=== PATIENT | male | born 1965 ===

== ENCOUNTER 2024-05-15 17:39 | Emergency (ER) | payer SELFPAY ==
[~2024-05-15] VITALS: Ht 180.3 cm; Wt 89.8 kg
[2024-05-15 17:58] LABS: BASOPHILS ABSOLUTE AUTO 0.09 K/mm3 (0.00-0.23); BASOPHILS PERCENT AUTO 1 % (0-2); EOSINOPHILS ABSOLUTE AUTO 0.61 K/mm3 (0.00-0.68); EOSINOPHILS PERCENT AUTO 5 % (0-6); Hematocrit 37.7 % (37.0-53.0); Hemoglobin 12.7 g/dL (13.5-17.5); IMMATURE GRAN ABSOLUTE AUTO 0.06 K/mm3 (0.00-0.10); IMMATURE GRAN PERCENT AUTO 1 % (0-1); LYMPHOCYTES ABSOLUTE AUTO 2.25 K/mm3 (0.84-5.20); LYMPHOCYTES PERCENT AUTO 20 % (21-46); MONOCYTES ABSOLUTE AUTO 0.74 K/mm3 (0.16-1.47); MONOCYTES PERCENT AUTO 7 % (4-13); Mean Corpuscular HGB 31.1 pg (26.0-34.0); Mean Corpuscular HGB Conc 33.7 g/dL (31.5-36.5); Mean Corpuscular Volume 92 fL (80-100); Mean Platelet Volume 9.6 fL (9.1-12.4); NEUTROPHILS ABSOLUTE AUTO 7.64 K/mm3 (1.96-9.15); NEUTROPHILS PERCENT AUTO 67 % (41-73); Platelet Count 459 K/mm3 (150-400); RDW Coefficient Variation 13.5 % (11.7-14.2); Red Blood Cell Count 4.08 M/mm3 (4.30-5.90); White Blood Cell Count 11.39 K/mm3 (4.00-11.30)
[2024-05-15 18:23] LABS: Albumin, Blood 3.3 g/dL (3.4-5.0); Albumin/Globulin Ratio 0.9 (0.8-1.8); Bilirubin, Total 0.4 mg/dL (0.1-1.0); Bun/Creatinine Ratio 16.5 (12.0-20.0); Calcium, Blood 9.4 mg/dL (8.5-10.1); Creatinine, Blood 1.27 mg/dL (0.60-1.20); Globulin, Blood 3.6 g/dL (2.2-4.0); Magnesium, Blood 2.2 mg/dL (1.6-2.4); Total Protein, Blood 6.9 g/dL (6.4-8.2)
[2024-05-15 18:34] LABS: Calcium, Ionized (POC) 1.11 mmol/L (1.10-1.46); Chloride (POC) 107 mmol/L (98-108); Creatinine (POC) 1.4 mg/dL (0.8-1.3); Glucose (ISTAT POC) 182 mg/dL (70-99); Hemoglobin (POC) 9.9 g/dL (13.5-17.5); Potassium (POC) 4.6 mmol/L (3.5-5.5); Sodium (POC) 140 mmol/L (135-148); Total CO2 (POC) 21 mmol/L (21-32)
[2024-05-15 18:43] LABS: Prothrombin Time Results 40.7 Sec (9.7-11.5)
[2024-05-15 18:49] LABS: International Normalized Ratio 4.23
[2024-05-15] MEDS ORDERED: NS 1,000 ML IV ONE (18:54)
[2024-05-15] MEDS ORDERED: WATER FOR INJECTION STERILE IV ONE (18:55)
[2024-05-15] MEDS ORDERED: HUMAN PROTHROMBIN COMPLX IV ONE (18:55)
== END 2024-05-15 19:11 | disposition home or self-care (01) ==
LOC: ER 17:39
PROVIDERS: Student in an Organized Health Care Education/Training Program
DX: I31.39 Other pericardial effusion (noninflammatory) (principal); R55 Syncope and collapse; D62 Acute posthemorrhagic anemia; R79.89 Other specified abnormal findings of blood chemistry; Z79.01 Long term (current) use of anticoagulants; Z95.4 Presence of other heart-valve replacement
CPT/HCPCS: 36430; 71045; 80047; 80053; 83690; 83735; 83880; 84484; 85014; 85025; 85610; 85730; 86850; 86900; 86901; 86920; 93005; 93010; 99291-25; J7030; J7060; J7168; P9016

== ENCOUNTER 2024-05-24 05:33 | Inpatient (IN) | payer OTHER, BC ==
[2024-05-24] VITALS (8 sets, daily range): BP systolic 101–130; BP diastolic 80–97
[~2024-05-24] VITALS: Ht 177.8 cm; Wt 92.9 kg
[2024-05-24 06:03] LABS: BASOPHILS ABSOLUTE AUTO 0.04 K/mm3 (0.00-0.23); BASOPHILS PERCENT AUTO 0 % (0-2); EOSINOPHILS ABSOLUTE AUTO 0.08 K/mm3 (0.00-0.68); EOSINOPHILS PERCENT AUTO 1 % (0-6); Hematocrit 30.2 % (37.0-53.0); IMMATURE GRAN PERCENT AUTO 1 % (0-1); LYMPHOCYTES ABSOLUTE AUTO 1.06 K/mm3 (0.84-5.20); LYMPHOCYTES PERCENT AUTO 9 % (21-46); MONOCYTES ABSOLUTE AUTO 1.04 K/mm3 (0.16-1.47); MONOCYTES PERCENT AUTO 9 % (4-13); Mean Corpuscular HGB Conc 33.1 g/dL (31.5-36.5); Mean Corpuscular Volume 94 fL (80-100); NEUTROPHILS PERCENT AUTO 79 % (41-73); Platelet Count 235 K/mm3 (150-400); RDW Coefficient Variation 13.3 % (11.7-14.2); RDW Standard Deviation 45.9 fL (35.1-46.3); Red Blood Cell Count 3.23 M/mm3 (4.30-5.90); White Blood Cell Count 11.22 K/mm3 (4.00-11.30)
[2024-05-24 06:15] LABS: Albumin, Blood 2.8 g/dL (3.4-5.0); Albumin/Globulin Ratio 0.8 (0.8-1.8); Bilirubin, Total 0.6 mg/dL (0.1-1.0); Bun/Creatinine Ratio 13.7 (12.0-20.0); Calcium, Blood 9.2 mg/dL (8.5-10.1); Creatinine, Blood 0.95 mg/dL (0.60-1.20); Globulin, Blood 3.4 g/dL (2.2-4.0); Potassium, Blood 4.1 mmol/L (3.5-5.5); Total Protein, Blood 6.2 g/dL (6.4-8.2)
[2024-05-24] MEDS ORDERED: Morphine Sulfate 4 MG/1 ML Injection IV ONE (06:15)
[2024-05-24] MEDS ORDERED: Ondansetron HCl 2 MG / ML 2ML Vial IV ONE (06:15)
[2024-05-24 06:38] LABS: International Normalized Ratio 2.6; Prothrombin Time Results 25.9 Sec (9.7-11.5)
[2024-05-24] MEDS ORDERED: NS 1,000 ML IV SCH ×2 (06:50→07:15)
[2024-05-24] MEDS ORDERED: FentaNYL Citrate 50 MCG/ML 2 ML Injection IV ONE (07:40)
[2024-05-24] MEDS ORDERED: ENOX100I (07:57)
[2024-05-24] MEDS ORDERED: FURO20 PO (07:58)
[2024-05-24] MEDS ORDERED: POTCHL20ER PO (07:58)
[2024-05-24] MEDS ORDERED: METO25 (07:59)
[2024-05-24] MEDS ORDERED: OXYC5 PO (08:00)
[2024-05-24] MEDS ORDERED: WARF5 PO (08:01)
[2024-05-24] MEDS ORDERED: Aspir 8181 MG PO (08:02)
[2024-05-24] MEDS ORDERED: ATOR40TA PO (08:02)
[2024-05-24] MEDS ORDERED: Amiodarone HCl200 MG PO (08:02)
[2024-05-24] MEDS ORDERED: CLOBETASOL EMOL15 G1 (08:03)
[2024-05-24] MEDS ORDERED: DESONIDE15 G1 TOP (08:03)
[2024-05-24] MEDS ORDERED: HYDCHL25 PO (08:04)
[2024-05-24] MEDS ORDERED: KETO15TC TOP (08:04)
[2024-05-24] MEDS ORDERED: PANT40 PO (08:05)
[2024-05-24] MEDS ORDERED: ACET325 PO (08:06)
[2024-05-24] MEDS ORDERED: COSENTYX P150 MG/1 M SC (08:06)
[2024-05-24] MEDS ORDERED: HYDROmorphone HCl/Pf 1MG SYR IV ONE ×2 (09:20→13:00)
[2024-05-24] MEDS ORDERED: FLU VACC TS2024-25(6MOS UP)/PF 45 MCG/0.5 ML SYRINGE IM SCH (11:30)
[2024-05-24] MEDS ORDERED: Bisacodyl 10 MG Supp PR PRN (11:30)
[2024-05-24] MEDS ORDERED: Magnesium Hydroxide Conc 10 ML UDC PO PRN (11:30)
[2024-05-24] MEDS ORDERED: Lactated Ringer's 1,000 ML IV SCH (11:35)
[2024-05-24] MEDS ORDERED: HYDROmorphone HCl/Pf 1MG SYR IV PRN (11:35)
[2024-05-24 11:57] LABS: Hematocrit 31.9 % (37.0-53.0); Hemoglobin 10.4 g/dL (13.5-17.5)
[2024-05-24] MEDS ORDERED: OxyCODONE HCL 5 MG TAB PO PRN (12:13)
[2024-05-24] MEDS ORDERED: Acetaminophen 325 MG TABLET PO ONE (12:40)
[2024-05-24] MEDS ORDERED: Lactated Ringer's 1,000 ML IV ONE (12:41)
[2024-05-24 15:09] LABS: International Normalized Ratio 2.62; Prothrombin Time Results 26.1 Sec (9.7-11.5)
[2024-05-24] MEDS ORDERED: Acetaminophen 325 MG TABLET PO SCH (18:00)
--- NOTE | 2024-05-24 18:44 | NUR ---
PATIENT RECIEVED FOR ED. HE WALKED FROM HALLWAY TO HIS BED. WHILE STANDING BEDSIDE PT REPORTED FEELING NAUSEAED AND HAD 200CC OF CLEAR EMESIS. AFTER EPISODE, PT REPORTED TO FEEL BETTER WITHOUT ANY INTERVENTION. PT ORIENTED TO ROOM AND CALL LIGHT. ALL QUESTIONS ANSWERED AT THIS TIME. VSS, AFEBRILE.
[2024-05-24 20:20] LABS: Hematocrit 32.6 % (37.0-53.0); Hemoglobin 10.6 g/dL (13.5-17.5)
[2024-05-24] MEDS ORDERED: Colchicine 0.6 MG TAB PO ONE (20:25)
[2024-05-24] MEDS ORDERED: Sennosides 8.6 MG Tab PO SCH (21:00)
[2024-05-24] MEDS ORDERED: Atorvastatin 40 MG Tab PO SCH (21:00)
[2024-05-24] MEDS ORDERED: Docusate Sodium 100 MG Cap PO SCH (21:00)
[2024-05-24] MEDS ORDERED: Ondansetron HCl 2 MG / ML 2ML Vial IV PRN (21:10)
[2024-05-24 23:51] LABS: Hematocrit 30.4 % (37.0-53.0)
[2024-05-25] VITALS (21 sets, daily range): BP systolic 100–138; BP diastolic 75–110
[2024-05-25] MEDS ORDERED: Ibuprofen 400 MG Tab PO SCH
--- NOTE | 2024-05-25 00:55 | NUR ---
ASSUMPTION OF CARE ASSUMED CARE FOLLOWING BEDSIDE REPORT FROM DAY NURSE. PT SITTING UP IN BED, ALERT AND ORIENTED TO ALL, MAEW, SERVICE SECRETARY GROSSLY INTACT, SENSATION INTACT IN ALL EXTREMITIES. PAIN 4/10 AT THIS TIME, SHARP, INTERMITTENT RIGHT CHEST, RUQ RADIATING TO BACK AND SHOULDERS. WILL TREAT WITH PRN AND SCHEDULED MEDS. PT IS WORRIED ABOUT NOT GETTING SLEEP TONIGHT- WILL COORDINATE CARE ACCORDINGLY. HR SINUS TACH, BP STABLE SBP > 100. LUNGS CLEAR AND DIMINISHED AT THE BASES, L > R. SAT GOOD ON RA. NO CHEST PRESSURE OR SOB. PT IS PALE. NO AB PAIN. REPORT OF ONE EPISODE OF CLEAR EMESIS UPON ARRIVAL TO ICU. PROVIDER CALLED FOR ANTI-EMETIC IF NEEDED. PT HAS CALL LIGHT NEARBY.
[2024-05-25 03:36] LABS: BASOPHILS ABSOLUTE AUTO 0.01 K/mm3 (0.00-0.23); BASOPHILS PERCENT AUTO 0 % (0-2); EOSINOPHILS PERCENT AUTO 0 % (0-6); Hematocrit 28.9 % (37.0-53.0); Hemoglobin 9.4 g/dL (13.5-17.5); IMMATURE GRAN ABSOLUTE AUTO 0.13 K/mm3 (0.00-0.10); IMMATURE GRAN PERCENT AUTO 1 % (0-1); LYMPHOCYTES ABSOLUTE AUTO 1.16 K/mm3 (0.84-5.20); LYMPHOCYTES PERCENT AUTO 12 % (21-46); MONOCYTES ABSOLUTE AUTO 0.86 K/mm3 (0.16-1.47); MONOCYTES PERCENT AUTO 9 % (4-13); Mean Corpuscular HGB 30.8 pg (26.0-34.0); Mean Corpuscular HGB Conc 32.5 g/dL (31.5-36.5); Mean Corpuscular Volume 95 fL (80-100); Mean Platelet Volume 10.5 fL (9.1-12.4); NEUTROPHILS ABSOLUTE AUTO 7.91 K/mm3 (1.96-9.15); NEUTROPHILS PERCENT AUTO 79 % (41-73); Platelet Count 209 K/mm3 (150-400); RDW Coefficient Variation 14.2 % (11.7-14.2); RDW Standard Deviation 48.5 fL (35.1-46.3); Red Blood Cell Count 3.05 M/mm3 (4.30-5.90); White Blood Cell Count 10.07 K/mm3 (4.00-11.30)
[2024-05-25] MEDS ORDERED: Pantoprazole Sodium 40 MG Tab PO SCH ×2 (06:00→21:00)
[2024-05-25 06:54] LABS: Albumin, Blood 2.9 g/dL (3.4-5.0); Albumin/Globulin Ratio 0.9 (0.8-1.8); Bilirubin, Total 0.6 mg/dL (0.1-1.0); Bun/Creatinine Ratio 21.9 (12.0-20.0); Calcium, Blood 9.8 mg/dL (8.5-10.1); Creatinine, Blood 1.05 mg/dL (0.60-1.20); Globulin, Blood 3.2 g/dL (2.2-4.0); Potassium, Blood 4.9 mmol/L (3.5-5.5); Total Protein, Blood 6.1 g/dL (6.4-8.2)
--- NOTE | 2024-05-25 07:36 | NUR ---
SHIFT SUMMARY PT LYING IN BED AWAKE WHEN SHIFT REPORT DONE INSIDE ROOM. PT ALERT AND ORIENTED TO ALL. MAEW. PT GROSSLY NEUROVASCULARLY INTACT. HR SINUS RHYTHM WITH STBALE BP. NO CHEST PAIN/PRESSURE, SOB, AB PAIN, N/V, DIZZINESS. PT RECEIVED ONE DOSE EACH OF DILAUDID AND OXYCODONE. CENTER CHEST INCISION FROM PERICARDIAL WINDOW PLACEMENT STILL COVERED IN GAUZE WITH NO NEW WEEPING OR LEAKAGE. GOOD SATURATION ON RA WITH AIR MOVEMENT IN ALL LUNG [place]. PT USES URINAL IN BED. SALINE LOCKED. CALL LIGHT NEARBY.
--- NOTE | 2024-05-25 09:00 | NUR ---
AM NOTE: PATIENT ALERT AND ORIENTED X4. ABLE TO MAKE ALL NEEDS KNOWN. DENIES NUMBNESS/TINGLING. UP TO TOILET WITH ONE PERSON ASSIST. MOVING ALL EXTREMITIES. ABLE TO TURN SELF IN BED. TELE SHOWING SINUS RHYTHM/SINUS TACH WITH HR 90-110'S. DENIES CHEST PAIN/PRESSURE/PALPITATIONS. IV SALINE LOCKED. DR. TAVARES BY THIS AM, THIS RN AT BEDSIDE. ORDERS TO DISCONTINUE TYLENOL AND LIPITOR AT THIS TIME. ORDERS IN PLACE. TAVR AND PERICARDIAL WINDOW SURGERY SITES WNL. MIDLINE CHEST DRESSING CHANGED. NO EDEMA NOTED. ON ROOM AIR. LUNG SOUNDS CLEAR AND DIM IN BASES. DENIES SOB AT REST. PATIENT STATES HE FEELS SOB WHEN UP TO TOILET. OCCASIONAL DRY COUGH. EVEN AND UNLABORED RESPIRTATIONS. DENIES ABDOMINAL PAIN/NAUSEA. TOLERTATING PO DIET. USING URINAL TO VOID. BOWEL MOVEMENT X1 THIS AM. BOWEL TONES PRESENT THROUGHOUT ABDOMIN. DR. SANTOS AT BEDSIDE THIS AM, THIS RN PRESENT. ORDERS FOR PCU STATUS, ORDERS IN PLACE. CALL LIGHT IN REACH. PATIENT RESTING IN BED AT THIS TIME. DENIES NEEDS.
[2024-05-25 10:15] LABS: International Normalized Ratio 2.83
[2024-05-25 10:28] LABS: Hematocrit 29.4 % (37.0-53.0); Hemoglobin 9.5 g/dL (13.5-17.5)
--- NOTE | 2024-05-25 15:58 | NUR ---
TRANSFER: REPORT GIVEN BY THIS RN TO MOY RN AND IAN RN. NO ACUTE CHANGES, SEE PREVIOUS AM NOTE. VITAL SIGNS STABLE. PATIENT CONTINUES TO DENY PAIN. REMAINED SR/ST WITH HR 90-100'S. ROOM AIR. UP TO BATHROOM WITH SBA. MULTIPLE BOWEL MOVEMENTS THIS SHIFT. AT BEDSIDE THIS AFTERNOON. PATIENT TAKEN TO PCU 07 WITH ALL PERSONAL BELONGINGS VIA WHEELCHAIR.
[2024-05-25 17:08] LABS: Hematocrit 30.1 % (37.0-53.0)
--- NOTE | 2024-05-25 17:48 | NUR ---
PT ARRIVED TO UNIT AT 1555. REPORT RECEIVED FROM CAMERA ENGINEER. PT TRANSPORTED VIA WHEELCHAIR AND WAS ABLE TO TRANSFER TO PCU BED INDEPENDENTLY. PT ON RA AND SATTING ABOVE 90%. VITAL SIGNS STABLE. CALL LIGHT WITHIN REACH.
[2024-05-25] MEDS ORDERED: Warfarin Sodium 5 MG Tab PO SCH (18:00)
[2024-05-25] MEDS ORDERED: Warfarin Sodium 2.5 MG Tab PO SCH (18:00)
[2024-05-25] MEDS ORDERED: Colchicine 0.6 MG TAB PO SCH (21:00)
[2024-05-25 22:01] LABS: Hematocrit 29.9 % (37.0-53.0); Hemoglobin 9.8 g/dL (13.5-17.5)
[2024-05-26 00:27] VITALS: BP 127/75
[2024-05-26 04:24] LABS: BASOPHILS ABSOLUTE AUTO 0.05 K/mm3 (0.00-0.23); BASOPHILS PERCENT AUTO 1 % (0-2); EOSINOPHILS ABSOLUTE AUTO 0.18 K/mm3 (0.00-0.68); EOSINOPHILS PERCENT AUTO 2 % (0-6); Hemoglobin 9.3 g/dL (13.5-17.5); IMMATURE GRAN ABSOLUTE AUTO 0.09 K/mm3 (0.00-0.10); IMMATURE GRAN PERCENT AUTO 1 % (0-1); LYMPHOCYTES ABSOLUTE AUTO 1.16 K/mm3 (0.84-5.20); LYMPHOCYTES PERCENT AUTO 14 % (21-46); MONOCYTES ABSOLUTE AUTO 0.75 K/mm3 (0.16-1.47); MONOCYTES PERCENT AUTO 9 % (4-13); Mean Corpuscular HGB 30.8 pg (26.0-34.0); Mean Corpuscular HGB Conc 33.2 g/dL (31.5-36.5); Mean Corpuscular Volume 93 fL (80-100); Mean Platelet Volume 10.7 fL (9.1-12.4); NEUTROPHILS ABSOLUTE AUTO 6.29 K/mm3 (1.96-9.15); NEUTROPHILS PERCENT AUTO 74 % (41-73); Platelet Count 204 K/mm3 (150-400); RDW Coefficient Variation 13.9 % (11.7-14.2); Red Blood Cell Count 3.02 M/mm3 (4.30-5.90); White Blood Cell Count 8.52 K/mm3 (4.00-11.30)
[2024-05-26 04:27] VITALS: BP 110/81
[2024-05-26 04:46] LABS: International Normalized Ratio 2.37; Prothrombin Time Results 23.8 Sec (9.7-11.5)
[2024-05-26 05:14] LABS: Albumin, Blood 2.8 g/dL (3.4-5.0); Albumin/Globulin Ratio 0.9 (0.8-1.8); Bilirubin, Total 0.8 mg/dL (0.1-1.0); Bun/Creatinine Ratio 20.5 (12.0-20.0); Calcium, Blood 9.1 mg/dL (8.5-10.1); Creatinine, Blood 0.93 mg/dL (0.60-1.20); Potassium, Blood 3.9 mmol/L (3.5-5.5); Total Protein, Blood 5.8 g/dL (6.4-8.2)
--- NOTE | 2024-05-26 06:37 | NUR ---
SHIFT SUMMARY PT HAD AN OVERALL UNEVENTFUL NIGHT. DENIES PAIN, ON SCHEDULED PAIN MEDICATIONS. SEE MAR FOR DETAILS. HEMODYNAMICALLY STABLE. PT C/O DIARRHEA OVERNIGHT. PT HAS BEEN RECEIVING BOWEL REGIMEN MEDICATIONS, HELD OVERNIGHT. PT IS NOTICING SMALL IMPROVEMENT. H/H STABLE. INR 2.7 PT ON WARFARIN. TRANSAMINITIS NOTED. HEMANGIOMA TO RIGHT HEPATIC LOBE PER IMAGING REPORT.
[2024-05-26 08:32] VITALS: BP 126/83
[2024-05-26] MEDS ORDERED: Colchicine 0.6 MG TAB PO SCH ×2 (09:00→21:00)
[2024-05-26 10:53] LABS: Hematocrit 30.2 % (37.0-53.0)
[2024-05-26 17:00] VITALS: BP 131/80
--- NOTE | 2024-05-26 17:24 | NUR ---
SHIFT SUMMARY NO ACUTE EVENTS THIS SHIFT. PT REMAINED A/OX4, VSS, PT DENIED PAIN. DIARRHEA PERSISTED THROUGH THE DAY, SEE MEDICATION ADJUSTMENTS BY MD.
[2024-05-26 19:19] VITALS: BP 127/82
[2024-05-27 04:17] VITALS: BP 128/85
[2024-05-27 04:39] LABS: International Normalized Ratio 2.74; Prothrombin Time Results 27.2 Sec (9.7-11.5)
--- NOTE | 2024-05-27 05:41 | NUR ---
SHIFT SUMMARY PT HAD AN UNEVENTFUL NIGHT. C/O SOME TROUBLE SLEEPING THIS SHIFT. VITALLY STABLE. DENIES PAIN.
[2024-05-27 07:43] VITALS: BP 140/73
[2024-05-27 10:53] LABS: Hematocrit 28.8 % (37.0-53.0); Hemoglobin 9.4 g/dL (13.5-17.5)
[2024-05-27 11:01] VITALS: BP 132/86
[2024-05-27 11:05] LABS: Albumin, Blood 2.7 g/dL (3.4-5.0); Albumin/Globulin Ratio 0.9 (0.8-1.8); Bilirubin, Total 0.9 mg/dL (0.1-1.0); Bun/Creatinine Ratio 16.5 (12.0-20.0); Creatinine, Blood 0.85 mg/dL (0.60-1.20); Potassium, Blood 3.5 mmol/L (3.5-5.5); Total Protein, Blood 5.7 g/dL (6.4-8.2)
[2024-05-27] MEDS ORDERED: COLCHICINE0.6 MG PO (14:37)
[2024-05-27] MEDS ORDERED: IBUP400 PO (14:38)
--- NOTE | 2024-05-27 15:15 | NUR ---
D/C SUMMARY THE PT IS A&OX4, IND IN THE ROOM, AMBULATED THE UNIT WITH OUT ANY ANGINA/SOB. VITAL SIGNS REMAIN STABLE AND HE HAS BEEN SR ON TELE. THE PT HAD HIS BELONGINGS RETURNED, IV D/C'D. D/C INFORMATION GONE OVER WITH THE PT AND MEDICATIONS WERE FAXED TO [facility]. NO FURTHER NOTES.
[2024-05-27] MEDS ORDERED: Warfarin Sodium 2.5 MG Tab PO ONE (18:00)
== END 2024-05-27 15:25 | disposition home or self-care (01) | DRG 315 ==
LOC: ER 05:33 → ICUE 11:26 → PCU 11:26 → ICUE 18:10 → PCU 05-25 15:57
PROVIDERS: Emergency Medicine; Family Medicine; ADMIT Internal Medicine
DX: I30.8 Other forms of acute pericarditis (principal); I31.2 Hemopericardium, not elsewhere classified; D64.9 Anemia, unspecified; R74.01 Elevation of levels of liver transaminase levels; I10 Essential (primary) hypertension; R79.89 Other specified abnormal findings of blood chemistry; R19.7 Diarrhea, unspecified; Z79.82 Long term (current) use of aspirin; Z95.2 Presence of prosthetic heart valve; Z79.891 Long term (current) use of opiate analgesic; Z79.01 Long term (current) use of anticoagulants; Z87.891 Personal history of nicotine dependence
CPT/HCPCS: 36415; 71045; 71260; 76705; 80053; 83605; 83690; 83880; 84484; 85014; 85018; 85025; 85610; 85651; 85730; 86140; 86141; 86850; 86900; 86901; 93005; 93010; 93306; 93308; 93321; 96361; 96374-59; 96375; 99285-25; A9270; J1171; J2270; J2405; J3010; J7030; J7120; Q9967